=== PATIENT | male | born 1990 | race American Indian/Alaskan Native ===

== ENCOUNTER 2016-07-27 15:57 | Outpatient (CLI) | payer OTHER ==
--- NOTE | 2016-07-27 16:24 | Cat Scan Report ---
CT HEAD WITHOUT CONTRAST INDICATION: Head injury. COMPARISON: None similar. FINDINGS: Noncontrast head CT demonstrates normal ventricles and sulci without acute or recent infarct, hemorrhage, mass effect or midline shift. No abnormal extra-axial fluid collections. Approximately 5 mm right ganglionic lacunar infarct or perivascular space, axial image 18, series 2. Posterior fossa structures and basilar cisterns appear within normal limits. Symmetric eye globes. Clear aerated paranasal sinuses and mastoid air cells. Aplastic/hypoplastic bilateral frontal sinuses. Intact calvarium. Normal overlying scalp soft tissues. Approximately 3.4 x 1.7 cm adenoids may be directly visualized. CONCLUSION: No acute intracranial CT abnormality, as described. I phoned the above results to Dr. Madrigal, 4:15 PM, 07/27/2016. Thank you for the opportunity to participate in this patient's care.
== END 2016-07-27 15:58 | disposition home or self-care (01) ==
LOC: CT 15:57
PROVIDERS: ATTEND Family Medicine Adult Medicine
DX: S09.90XA Unspecified injury of head, initial encounter (principal); X58.XXXA Exposure to other specified factors, initial encounter; Y93.89 Activity, other specified; Y92.89 Other specified places as the place of occurrence of the external cause; Y99.8 Other external cause status
CPT/HCPCS: 70450

== ENCOUNTER 2017-07-18 13:40 | Emergency (ER) | payer OTHER ==
[2017-07-18 14:10] VITALS: BP 125/82
== END 2017-07-18 18:57 | disposition left against medical advice (07) ==
LOC: ED 13:40
DX: M79.641 Pain in right hand (principal); Z53.21 Procedure and treatment not carried out due to patient leaving prior to being seen by health care provider